=== PATIENT | female | born 1945 | race Caucasian/White ===

== ENCOUNTER 2016-12-24 18:19 | Inpatient (IN) | payer MEDICARE, OTHER ==
[2016-12-24] VITALS (11 sets, daily range): BP systolic 80–111; BP diastolic 28–67
[~2016-12-24] VITALS: Ht 160 cm; Wt 96.4 kg
[~2016-12-24 18:19] MED LIST: AMLO5TAB4 PO; ATOR20TA PO
--- NOTE | 2016-12-24 18:19 | NUR ---
DENNIS 79 FROM HOME FOR UNABLE TO CARE FOR HERSELF, SMELLS OF URINE, NAD NOTED. RR EVEN AND UNLABORED. PT PLACED IN GOWN AND MONITOR. MD AT BEDSIDE FOR EVAL.
--- NOTE | 2016-12-24 18:43 | NUR ---
URINE OBTAINED SENT TO LAB
[2016-12-24 18:49] LABS: INR 2.61 (0.87-1.13); PROTHROMBIN TIME 28.5 SECS (9.5-12.7)
[2016-12-24 18:53] LABS: SERUM AMMONIA 106 umol/L (11-32)
[2016-12-24 18:56] LABS: TROPONIN I 0.056 ng/mL (0.00-0.056)
[2016-12-24 18:58] LABS: APPEARANCE,URINE Slightly Cloudy (CLEAR); BILIRUBIN,URINE LARGE (NEGATIVE); BLOOD, URINE Trace-intact Ery/uL (NEGATIVE); COLOR,URINE Amber (YELLOW); KETONES,URINE Trace (NEGATIVE); LEUKOCYTE ESTERASE ,URINE Negative (NEGATIVE); NITRITE, URINE Negative (NEGATIVE); PH,URINE 5.5 (5.0-8.0); PROTEIN,URINE 100 mg/dl (NEGATIVE); UGLUCOSE 100 MG/DL mg/dL (NEGATIVE)
[2016-12-24 19:05] LABS: ALCOHOL, BLOOD < 3 mg/dL (0-0)
--- NOTE | 2016-12-24 19:10 | NUR ---
PT IS NOTED TO BE HYPOTENSIVE. MD NOTIFED. MEDICATED PT ORDERED, 1000ML NS BOLUS
[2016-12-24 19:14] LABS: BACTERIA,URINE Many /HPF (None Seen); RBC,URINE 0-2 /HPF (0-2); SQUAMOUS EPITHELIAL CELL,UR Few /HPF (None Seen); WBC,URINE 0-2 /HPF (0-3)
[2016-12-24 19:22] LABS: HEMATOCRIT 38 % (33-45); HEMOGLOBIN 13.2 g/dL (11.5-14.8); MEAN CORPUSCULAR HEMOGLOBIN 36 PG (26.0-33.0); MEAN CORPUSCULAR HGB CONC 35 g/dl (31.0-36.0); MEAN CORPUSCULAR VOLUME 105 fL (82-100); PLATELET COUNT (AUTO) 340 /CMM (150-450); RDW COEFFICIENT OF VARIATION 16.9 (11.5-15.0); RED BLOOD CELL COUNT(AUTO) 3.66 MIL/uL (4.0-5.2); WHITE BLOOD COUNT (AUTO) 16.4 K/uL (4.3-11.0)
[2016-12-24 19:23] LABS: ALANINE AMINOTRANSFERASE 220 U/L (12-78); ALBUMIN 2.4 g/dL (3.4-5.0); ALKALINE PHOSPHATASE 461 U/L (46-116); ASPARTATE AMINOTRANSFERASE 524 U/L (15-37); BILIRUBIN,DIRECT 23.9 mg/dL (0.0-0.2); BILIRUBIN,TOTAL 28.9 mg/dL (0.2-1.0); CALCIUM, SERUM 8.7 mg/dL (8.5-10.1); CARBON DIOXIDE 20 mmol/L (21-32); CHLORIDE 87 mmol/L (98-107); GLUCOSE 95 mg/dL (74-106); POTASSIUM 3.1 mmol/L (3.5-5.1); SODIUM SERUM 127 mmol/L (136-145); TOTAL PROTEIN, SERUM 6.4 g/dL (6.4-8.2)
[2016-12-24 19:26] LABS: UREA NITROGEN, BLOOD 86 mg/dL (7-18)
[2016-12-24] MEDS ORDERED: IV NS 0.9% 1,000 ML ONE (19:37)
[2016-12-24] MEDS ORDERED: IV SET PRIMARY 1 EA INFUS.SET MC ONE (19:37)
--- NOTE | 2016-12-24 19:52 | NUR ---
16G LEFT AC IV STARTED, MEDICATED PT ORDERED
[2016-12-24 20:00] LABS: EOSINOPHILS % (MANUAL) 2 % (0-4); LYMPHOCYTES % (MANUAL) 7 % (16-48); MONOCYTES % (MANUAL) 7 % (0-11.0); NEUTROPHILS % (MANUAL) 84 (42-76)
--- NOTE | 2016-12-24 20:15 | NUR ---
RECHECK BP AFTER BOLUS; 119/72. NOTIFIED
[2016-12-24] MEDS ORDERED: CEFTRIAXONE 1GM BAG (ER ONLY) 50 ML IV ONE (20:25)
[2016-12-24] MEDS ORDERED: IV SET PRIMARY PUMP SET 1 EA INFUS.SET MC ONE ×3 (20:25→23:02)
[2016-12-24] MEDS ORDERED: POTASSIUM CL. PREMIX PERIPHER. 50 ML ONE (20:25)
[2016-12-24] MEDS ORDERED: CEFTRIAXONE 1GM BAG (ER ONLY) 1 GM/50 ML PIGGYBACK IV ONE (20:30)
[2016-12-24] MEDS ORDERED: IV NS 0.9% 1,000 ML BAG IV ONE (20:30)
--- NOTE | 2016-12-24 20:30 | NUR ---
CALLED NURSING SUP. FOR ICU BED
[2016-12-24] MEDS: POTASSIUM CL. PREMIX PERIPHER. 50 ML IV SCH ×4 (20:35→23:34)
[2016-12-24] MEDS ORDERED: LACTULOSE 10 G/15 ML UDC (PYXIS) ONE (20:50)
[2016-12-24] MEDS ORDERED: ONDANSETRON HCL/PF 4 MG/2 ML VIAL IVP PRN (21:00)
[2016-12-24] MEDS ORDERED: Thiamine 100 MG in IV D5W 50 ML IV SCH (21:00)
[2016-12-24] MEDS: LACTULOSE 10 G/15 ML UDC (PYXIS) GT SCH (21:00)
[2016-12-24] MEDS ORDERED: ACETAMINOPHEN 325 MG TABLET PO PRN (21:00)
[2016-12-24] MEDS ORDERED: LACTULOSE 10 G/15 ML UDC (PYXIS) PO ONE (21:00)
[2016-12-24] MEDS ORDERED: NOREPINEPHRINE 8 MG in IV D5W 500 ML IV PRN (21:00)
--- NOTE | 2016-12-24 21:10 | NUR ---
TRANSPORTED PT TO ICU BED WITH EMT WITHOUT INCIDENT
[2016-12-24] MEDS ORDERED: SECONDARY IV SET 1 EA INFUS.SET MC ONE ×2 (21:19→23:33)
[2016-12-24] MEDS: IV D5/ 0.9% NACL 1,000 ML IV PRN (21:30)
--- NOTE | 2016-12-24 21:36 | NUR ---
[facility] DR[facility]
--- NOTE | 2016-12-24 21:37 | NUR ---
MRCP APPROVED BY DR. PRADO,SPOKE TO CINTIA NAVARRETE , OK TO DO TOMORROW AM.
--- NOTE | 2016-12-24 21:38 | NUR ---
CALLED [facility] FOR [facility] TRANSFER, SPOKE WITH [place], PRESENTED PT, FAXED PT FACESHEET AND RESULTS TO [phone]
[2016-12-24] MEDS ORDERED: PIPERACILLIN /TAZOBACTAM 2.25 G VIAL IV ONE (21:53)
[2016-12-24] MEDS ORDERED: IV D5W 50 ML IV ONE ×2 (21:53→23:32)
--- NOTE | 2016-12-24 21:57 | NUR ---
RECEIVED CALL FROM [place] AT [facility] [place], [place], NO CAPACITY AT THIS TIME, PT HAS BEEN DENIED TRANSFER
[2016-12-24] MEDS ORDERED: PHYTONADIONE 5 MG TABLET PO ONE (22:00)
--- NOTE | 2016-12-24 22:22 | NUR ---
RN:ICU: PT RECEIVED FROM ED, DX HEPATORENAL SYNDROME, POSSIBLE SBP. PT ALERT AND ABLE TO FOLLOW COMMANDS BUT EASILY BECOMES CONFUSED. PT SEVERELY JAUNDICED AND HAS HX OF ETOH ABUSE. PER PATIENT LAST DRINK OF ALCOHOL WAS 1 WEEK AGO, PT DOES NOT HAVE ANY SIGNS OF ETOH WITHDRAWL AT THIS TIME. PT REQUIRES FREQUENT REORIENTATION AND IS NOT ABLE TO PROVIDE AN ACCURATE MEDICAL HISTORY. PT RECEIVING LACTULOSE FOR HEPATIC ENCEPHOLOPATHY/ AMMONIA LEVEL 106. FIRST DOSE GIVEN IN ED, PER SARAHY OK TO START BID DOSING IN AM. D/W SARAHY GAS BURNER OPERATOR REGARDING ADMITTING ORDERS, OK TO PERFORM MRCP IN AM. PT BP RUNNING 90'S. GAS BURNER OPERATOR STATED THAT MAY GIVE NS 250ML BOLUS PRIOR TO STARTING LEVOPHED AND HE WILL ENTER ORDERS. IV SITES INTACT. PER SARAHY HE HAS ARRANGED FOR PATIENT TO BE TRANSFERRED TO HIGHER LEVEL OF CARE, NO BED AVAILABLE AT THIS TIME. DR GARCIA AT THE BEDSIDE FOR HEMATOLOGY/ONCOLOGY CONSULT. SKIN INTACT. FALL/ASPIRATION PRECAUTIONS. VSS. WILL CONTINUE TO MONITOR CLOSELY.
[2016-12-24] MEDS ORDERED: PHYTONADIONE 5 MG TABLET ONE (23:00)
[2016-12-24] MEDS ORDERED: IV NS 0.9% 250 ML IV ONE ×2 (23:00→23:02)
[2016-12-24] MEDS ORDERED: PHYTONADIONE INJ 10 MG/1 ML AMPUL ONE (23:21)
[2016-12-24] MEDS ORDERED: PHYTONADIONE INJ 10 MG/1 ML AMPUL SQ SCH (23:30)
[2016-12-24] MEDS: PIPERACILLIN /TAZOBACTAM 2.25 G in IV D5W 50 ML IV SCH (23:35)
--- NOTE | 2016-12-24 23:48 | NUR ---
RN:ICU: CLARIFIED VIT K ORDER THE HOSPITAL DOES NOT CARRY THIS ROUTE OF THIS MEDICATION. SPOKE WITH SARAHY REGARDING MED, PER SPORTS PHYSICIAN OK TO CHANGE ROUTE TO SQ, USING A SMALL NEEDLE. ORDERS CARRIED OUT. PT COMPLAINING OF NAUSEA AND FREQUENTLY CRIES OUT "HELP ME" WHEN ASKED WHAT SHE NEEDS PATIENT DOES NOT KNOW. ASPIRATION PRECAUTIONS IN PLACE. IV BOLUS INFUSED PER SPORTS PHYSICIAN FOR BP IN THE 90'S. PER SPORTS PHYSICIAN ALL CONSULTS FOR THIS PATIENT HAVE BEEN NOTIFIED REGARDING THIS PATIENT. VSS. WILL CONTINUE TO MONITOR CLOSELY.
[2016-12-25] VITALS (61 sets, daily range): BP systolic 69–159; BP diastolic 25–79
[2016-12-25] MEDS ORDERED: IV NS 0.9% 2,000 ML ONE (02:44)
[2016-12-25] MEDS ORDERED: IV NS 0.9% 500 ML IV ONE ×2 (03:00→04:03)
[2016-12-25] MEDS ORDERED: NS 0.9% IV ONE (03:00)
[2016-12-25] MEDS ORDERED: IV NS 0.9% 1,000 ML IV PRN ×2 (03:00)
--- NOTE | 2016-12-25 03:04 | NUR ---
RN:ICU: SPOKE WITH PI REGARDING PT MEETING SEPSIS CRITERIA AND NOT RECEIVING ADEQUATE IV BOLUS. PER REP PT NEEDS AN ADDITIONAL 1630 ML OF NS. SARAHY BATH HOUSE ATTENDANT INFORMED AND PROVIDED ORDERS FOR BOLUS. BATH HOUSE ATTENDANT ALSO NOTIFIED THAT PT HAD ONE EPISODE OF COFFEE GROUND EMESIS. BATH HOUSE ATTENDANT DOES NOT WANT TO PLACE NGT THE PATIENT MAY HAVE ESOPHAGEAL VARIES. ASPIRATION PRECAUTIONS IN PLACE. WILL ADMIN ZOFRAN PER MD ORDERS ONCE IT IS SCHEDULED AGAIN.
[2016-12-25] MEDS ORDERED: MORPHINE SULFATE INJ 2 MG/ML DISP.SYRIN ONE (03:58)
[2016-12-25] MEDS ORDERED: PANTOPRAZOLE 80 MG in IV NS 0.9% 100 ML IV ONE (04:00)
[2016-12-25] MEDS ORDERED: ONDANSETRON HCL/PF 4 MG/2 ML VIAL IV ONE (04:00)
--- NOTE | 2016-12-25 04:00 | NUR ---
RN:ICU: PT CONTINUES TO HAVE SEVERAL EPISODES OF COFFEE GROUND EMESIS WITH SCANT AMOUNTS OF DARK BLOOD. PT COMPLAINING OF ABDOMINAL PAIN. D/W SARAHY REGARDING PT CONDITION. NEW ORDERS FOR MORPHINE, DISCUSSED WITH ORE PUNCHER REGARDING POSSIBLE INTERACTION WITH MORPHINE AND MRCP, ORE PUNCHER STATED IT IS OK TO GIVE ONE DOSE. ADDITIONAL ORDER FOR ONE TIME DOSE FOR ZOFRAN GIVEN. AM LABS SENT OUT. VERBAL CONSENT OBTAINED BY PATIENT FOR HIV TEST ORDERED BY DR GARCIA. EMMANUEL RN WITNESSED. NEW ORDERS FOR PROTONIX BOLUS AND GTT PROVIDED. PT PLACED ON 2 L NC FOR COMFORT. SEPSIS BOLUS INFUSED. NO S/S OF FLUID OVERLOAD. ASPIRATION PRECAUTIONS IN PLACE. WILL CONTINUE TO MONITOR CLOSELY.
[2016-12-25] MEDS ORDERED: PIPERACILLIN /TAZOBACTAM 2.25 G VIAL IV ONE (04:02)
[2016-12-25] MEDS ORDERED: IV SET PRIMARY PUMP SET 1 EA INFUS.SET MC ONE ×2 (04:03→06:04)
[2016-12-25] MEDS ORDERED: IV NS 0.9% 100 ML IV ONE (04:03)
[2016-12-25] MEDS: MORPHINE SULFATE INJ 4 MG/ML DISP.SYRIN IV PRN ×2 (04:04→15:26)
[2016-12-25] MEDS ORDERED: PANTOPRAZOLE 40 MG VIAL ONE (04:04)
[2016-12-25] MEDS: PANTOPRAZOLE 80 MG in IV NS 0.9% 500 ML IV PRN ×2 (04:14→15:19)
[2016-12-25 04:53] LABS: HEMATOCRIT 34 % (33-45); MEAN CORPUSCULAR HEMOGLOBIN 36 PG (26.0-33.0); MEAN CORPUSCULAR HGB CONC 35 g/dl (31.0-36.0); MEAN CORPUSCULAR VOLUME 104 fL (82-100); PLATELET COUNT (AUTO) 310 /CMM (150-450); RDW COEFFICIENT OF VARIATION 16.4 (11.5-15.0); RED BLOOD CELL COUNT(AUTO) 3.31 MIL/uL (4.0-5.2); WHITE BLOOD COUNT (AUTO) 16.4 K/uL (4.3-11.0)
--- NOTE | 2016-12-25 05:00 | NUR ---
RN:ICU: CONSENT OBTAINED FOR HIV TEST AND MRCP. DR GARCIA AND SARAHY MORALES SPOKE WITH PATIENT REGARDING PROCEDURE. PT WAS KNOWLEDGEABLE REGARDING MRCP. CONSENT OBTAINED WITH EMMANUEL WITNESS. PT UNABLE TO PHYSICALLY SIGN, DUE TO NAUSEA/VOMITING. WILL ENDORSE TO ONCOMING SHIFT.
[2016-12-25 05:10] LABS: ALANINE AMINOTRANSFERASE 194 U/L (12-78); ALBUMIN 2.1 g/dL (3.4-5.0); ASPARTATE AMINOTRANSFERASE 485 U/L (15-37); BILIRUBIN,DIRECT 21.6 mg/dL (0.0-0.2); BILIRUBIN,TOTAL 25.6 mg/dL (0.2-1.0); CALCIUM, SERUM 7.9 mg/dL (8.5-10.1); CARBON DIOXIDE 16 mmol/L (21-32); CHLORIDE 94 mmol/L (98-107); CREATININE 4.9 mg/dL (0.6-1.3); GLUCOSE 113 mg/dL (74-106); MAGNESIUM 2.1 mg/dL (1.8-2.4); PHOSPHORUS 5.1 mg/dL (2.5-4.9); POTASSIUM 3.1 mmol/L (3.5-5.1); SODIUM SERUM 130 mmol/L (136-145); TOTAL PROTEIN, SERUM 5.6 g/dL (6.4-8.2)
[2016-12-25 05:11] LABS: CHOLESTEROL 170 mg/dL (<200); HDL CHOLESTEROL < 10 mg/dL (40-60); LDL 179 mg/dL (0-99); THYROID STIMULATING HORMONE 1.026 uIU/mL (0.358-3.74); TRIGLYCERIDES 153 mg/dL (30-150)
[2016-12-25] MEDS: PIPERACILLIN /TAZOBACTAM 2.25 G in IV D5W 50 ML IV SCH ×3 (05:16→18:03)
[2016-12-25 05:20] LABS: UREA NITROGEN, BLOOD 83 mg/dL (7-18)
[2016-12-25 05:21] LABS: EOSINOPHILS % (MANUAL) 1 % (0-4); LYMPHOCYTES % (MANUAL) 7 % (16-48); MONOCYTES % (MANUAL) 4 % (0-11.0); NEUTROPHILS % (MANUAL) 88 (42-76)
[2016-12-25 05:28] LABS: ALKALINE PHOSPHATASE 2167 U/L (46-116)
[2016-12-25] MEDS ORDERED: NOREPINEPHRINE 4 MG/4 ML AMPUL IV ONE (06:03)
[2016-12-25] MEDS ORDERED: IV D5W 500 ML IV ONE (06:04)
--- NOTE | 2016-12-25 06:30 | NUR ---
RN:ICU: PT BP CONSISTENTLY 80'S-60'S. PT REMAINS ALERT BUT LETHARGIC. LEVOPHED GTT STARTED PER MD ORDERS. SPOKE WITH VIDEO POKER FLOORMAN REGARDING PICC LINE INSERTION LEVOPHED IS GOING TO BE STARTED. ALSO SPOKE WITH VIDEO POKER FLOORMAN REGARDING ISSUES WITH OBTAINING CONSENT, PER VIDEO POKER FLOORMAN OK TO USE EMERGENCY CONSENT FOR PICC LINE. NURSING METAL FURNITURE GLAZIER MADE AWARE. WILL CONTINUE TO MONITOR CLOSELY.
--- NOTE | 2016-12-25 06:53 | NUR ---
RN:ICU: SARAHY AT THE BEDSIDE ASSESSING PT. LEVOPHED DECREASED TO 1MCG/KG/MIN. WILL CONTINUE TO MONITOR CLOSELY.
[2016-12-25] MEDS ORDERED: PANTOPRAZOLE 40 MG TABLET.DR PO SCH (07:30)
--- NOTE | 2016-12-25 07:30 | NUR ---
ICU/RN: PT TRANSFERRED FROM OVER FLOW UNIT TO MAIN ICU. PT CRITICAL. VOMITING COFFEE GROUND EMESIS. AWARE. PT ON PROTONIX DRIP.
--- NOTE | 2016-12-25 08:00 | NUR ---
ICU/RN: INITIAL NOTES,AM RECEIVED REPORT FROM NIGHT NURSE. PT ALERT, AWAKE, YET DROWSY, EASILY AROUSED. ON NASAL CANULA, 2LITERS, MAINTAINING 02 SAT >95%. PT ON TELE, SINUS. PT JAUNDICED OVERALL. MRCP PENDING, CONSENT IN CHART. PIV'S PATENT AND INTACT, IV FLUIDS INFUSING ORDERED, PROTONIX DRIP INFUSING ORDERED. PATIENTS BLOOD PRESSURE BORDER LINE, ORDERS FOR PICC LINE IN PLACE. LEVO ORDERED BY MD. POSSIBLE TRANSFER TO HIGHER LEVEL OF CARE PER MD. ALL NEED MET, SAFETY MEASURES TAKEN, BED IN LOW POSITION, SIDE RAILS UP, CALL LIGHT WITHIN REACH.
[2016-12-25] MEDS ORDERED: PANTOPRAZOLE 40 MG VIAL IV SCH (09:00)
[2016-12-25] MEDS: LACTULOSE 10 G/15 ML UDC (PYXIS) GT SCH ×2 (09:47→18:03)
--- NOTE | 2016-12-25 10:30 | NUR ---
ICU/RN: DR. PRINGLE NOTIFIED OF POTASSIUM OF 3.1. PER MD NO REPLACEMENT NEEDED. WILL CONTINUE TO MONITOR AND ASSESS.
[2016-12-25] MEDS: IV D5/ 0.9% NACL 1,000 ML IV PRN (12:40)
--- NOTE | 2016-12-25 14:45 | NUR ---
ICU/RN: PT UNABLE TO GO TO [facility] DUE TO UNABLE TO STAY STILL AND CLAUSTROPHOBIA. NOTIFIED.
--- NOTE | 2016-12-25 15:00 | NUR ---
ICU/RN: DR. MUÑOZ AT BEDSIDE. NOTIFIED OF LOW URINE OUTPUT. NO NEW ORDERS AT THIS TIME.
--- NOTE | 2016-12-25 18:00 | NUR ---
ICU/RN: REPORT ENDORSED TO AMARJIT HAINES AT [facility] FOR TRANSFER. AWAITING FOR EMS. DISCHARGE DONE PAPERWORK DONE.
[2016-12-25] MEDS ORDERED: POTASSIUM CHLORIDE 20 MEQ POWDER PACKET GT ONE (19:00)
--- NOTE | 2016-12-25 19:14 | NUR ---
ICU/RN ENDING NOTES,AM REPORT ENDORSED TO NIGHT NURSE FOR CONTINUATION OF CARE. STILL AWAITING FOR AMBULANCE PICKUP TO TRANSFER TO [facility]. ALL NEEDS MET. PT CLEAN AND DRY. ON NASAL CANULA. WILL CONTINUE CARE.
--- NOTE | 2016-12-25 20:25 | NUR ---
BUZZSAW OPERATOR PT PICKED UP BY MED RESPONSE; VSS. PERIPHERAL IVS INTACT. ALL PAPERWORK AND REPORT DONE BY PREVIOUS SHIFT.
[2016-12-25] MEDS ORDERED: CEFTRIAXONE 1 G in IV D5W 50 ML IV SCH (21:00)
[2016-12-27 17:03] LABS: AFP, TUMOR MARKER 3.9 ng/mL (0.0-8.3); CARCINOEMBRYONIC AG (CEA) 41.4 ng/mL (0.0-4.7)
== END 2016-12-25 20:30 | disposition short-term general hospital (02) | DRG 432 ==
LOC: ER 18:21 → ICUOV 20:49 → ICU 12-25 07:45
PROVIDERS: ADMIT Nurse Practitioner Acute Care; ATTEND Nurse Practitioner Acute Care
DX: K70.40 Alcoholic hepatic failure without coma (principal); K76.7 Hepatorenal syndrome; R18.8 Other ascites; E87.1 Hypo-osmolality and hyponatremia; D68.9 Coagulation defect, unspecified; N13.30 Unspecified hydronephrosis; N17.9 Acute kidney failure, unspecified; R57.9 Shock, unspecified; E87.2 Acidosis; C78.6 Secondary malignant neoplasm of retroperitoneum and peritoneum; E72.20 Disorder of urea cycle metabolism, unspecified; F20.0 Paranoid schizophrenia; C78.00 Secondary malignant neoplasm of unspecified lung; C78.89 Secondary malignant neoplasm of other digestive organs; E87.6 Hypokalemia; D75.89 Other specified diseases of blood and blood-forming organs; N18.9 Chronic kidney disease, unspecified; R74.0 Nonspecific elevation of levels of transaminase and lactic acid dehydrogenase [LDH]; K80.20 Calculus of gallbladder without cholecystitis without obstruction; Z91.81 History of falling; S30.1XXA Contusion of abdominal wall, initial encounter; X58.XXXA Exposure to other specified factors, initial encounter; Y93.9 Activity, unspecified; Y92.009 Unspecified place in unspecified non-institutional (private) residence as the place of occurrence of the external cause; Y99.9 Unspecified external cause status; F20.9 Schizophrenia, unspecified; K29.80 Duodenitis without bleeding; F19.10 Other psychoactive substance abuse, uncomplicated; E78.5 Hyperlipidemia, unspecified; E87.8 Other disorders of electrolyte and fluid balance, not elsewhere classified; I95.9 Hypotension, unspecified; F10.10 Alcohol abuse, uncomplicated; D72.829 Elevated white blood cell count, unspecified; R59.1 Generalized enlarged lymph nodes; R93.5 Abnormal findings on diagnostic imaging of other abdominal regions, including retroperitoneum; F12.10 Cannabis abuse, uncomplicated; F32.9 Major depressive disorder, single episode, unspecified; K27.9 Peptic ulcer, site unspecified, unspecified as acute or chronic, without hemorrhage or perforation; I12.9 Hypertensive chronic kidney disease with stage 1 through stage 4 chronic kidney disease, or unspecified chronic kidney disease
CPT/HCPCS: 36415; 70450-TC; 71010-TC; 72128-TC; 80048-TC; 80061-TC; 80076-TC; 80305; 81000-TC; 82105; 82140-TC; 82378; 82746; 83605-TC; 83735-TC; 84100-TC; 84443-TC; 84484-TC; 85025-TC; 85730-TC; 86301; 86706; 86803; 87040-TC; 87081-TC; 87086-TC; 87340; 93307-TC; A4606; C9113; G0480; J0696; J2270; J2405; J2543; J3411; J3430; J3480; J7030; J7040; J7042; J7050; J7060; Z7610